=== PATIENT | female | born 1985 | race Caucasian/White ===

== ENCOUNTER 2018-12-30 19:07 | Emergency (ER) | payer MEDICAID ==
[~2018-12-30] VITALS: Ht 152.4 cm; Wt 67.6 kg
[2018-12-30] MEDS ORDERED: MAGNESIUM CITRATE 300ML SOLUTION PO ONE (22:45)
[2018-12-30 22:57] LABS: CLARITY URINE CLEAR (CLEAR); COLOR URINE YELLOW (YELLOW); KETONES URINE NEGATIVE (NEGATIVE); LEUKOCYTE ESTERASE URINE TRACE (NEGATIVE); NITRITE URINE NEGATIVE (NEGATIVE); OCCULT BLOOD URINE NEGATIVE (NEGATIVE); PH URINE 5.5 (4.5-8.0); PROTEIN URINE NEGATIVE (NEGATIVE); SPECIFIC GRAVITY URINE 1.026 (1.005-1.030); UROBILINOGEN URINE 0.2 E.U./dL (0.2-1.0)
[2018-12-30] MEDS ORDERED: KETOROLAC 60MG/2ML VIAL IM ONE (23:45)
[2018-12-31] MEDS ORDERED: CEPHALEXIN 250MG CAPSULE PO SCH (00:41)
[2018-12-31 00:48] VITALS: BP 98/62
== END 2018-12-31 00:57 | disposition home or self-care (01) ==
LOC: ER 19:07
DX: K59.00 Constipation, unspecified (principal); N39.0 Urinary tract infection, site not specified; R11.10 Vomiting, unspecified; F15.10 Other stimulant abuse, uncomplicated; Z98.890 Other specified postprocedural states
CPT/HCPCS: 74018; 81003; 81025; 96372; 99284; J1885; Z7610